=== PATIENT | male | born 1945 | race Caucasian/White ===

== ENCOUNTER 2016-07-05 16:07 | Inpatient (IN) | payer MEDICARE, OTHER ==
[~2016-07-05 16:07] MED LIST: ADULT LOW DOSE81 MG; AGGRENOX CAP1 BOTTLE; B COMPLEX PO; BABY ASPIRIN81 MG PO; BACTRIM DS1 TAB PO; CLARINEX5 MG; CLARINEX5 MG PO; COUMADIN4 MG; COZAAR100 MG PO; COZAAR50 MG PO; CYCLOBENZAPRINE5 MG PO; GLUCAGEN1 MG/KIT IJ; HUMALOG100 U/ML SQ; INDOCIN50 MG PO; INDOMETHACIN50 MG PO; LEVEMIR100 U/M SQ; LEVEMIR100 U/ML SQ; NAPROXEN500 MG PO; NORCO 5/325 TAB1 TAB PO; NORCO 5/3251 TA1 PO; NORVASC5 MG; NOVOLOG100 U/M SQ; PRADAXA150 MG PO; PRINIVIL40 MG; RESTORIL30 MG; TENORMIN100 MG; TENORMIN100 MG PO; TENORMIN50 MG; TYLENOL W/CODEI1 TAB PO; TYLENOL325 MG PO; VIT PO; VITAMIN B COMPL PO; VITAMIN B-121000 MCG PO; VITAMIN D1000 UNIT PO; VITAMIN D2400 UNIT PO; VITAMIN D32000 UNI1 PO; VYTORIN 10/80 T1 TAB PO; ZOCOR80 MG; [UNRECOGNIZED DRUG - OTHER]; [UNRECOGNIZED DRUG - REMARK]; [UNRECOGNIZED DRUG - SUPPLY] SC
[2016-07-05] MEDS ORDERED: LEVEMIR FL100 UNIT/2 SC ×2 (16:26→18:31)
[2016-07-05] MEDS ORDERED: ELIQUIS5 M1 PO (16:27)
[2016-07-05] MEDS ORDERED: CLARINEX5 M1 PO (16:27)
[2016-07-05] MEDS ORDERED: SINGULAIR10 M1 PO ×2 (16:27→18:32)
[2016-07-05] MEDS ORDERED: PROTONIX40 M2 PO ×2 (16:27→18:34)
[2016-07-05] MEDS ORDERED: LABETALOL HCL200 M1 PO (16:28)
[2016-07-05] MEDS ORDERED: LOSARTAN-HCTZ1 EAC6 PO ×2 (16:29→18:31)
[2016-07-05] MEDS ORDERED: ATORVASTATIN CA20 M1 PO (16:29)
[2016-07-05] MEDS ORDERED: TRULICITY1.5 MG/0.5 SC (16:29)
[2016-07-05 17:22] LABS: BASO % 0.4 % (0-2); EOS % 2.4 % (0-7); EOSINOPHIL ABSOLUTE COUNT 0.2 tho/cmm (0.0-0.7); HCT-HEMATOCRIT 37.2 % (36.0-53.5); HGB-HEMOGLOBIN 12.7 gm/dl (13.5-17.0); IMMATURE GRANULOCYTES ABSOLUTE 0.02 tho/cmm (0-0.03); IMMATURE GRANULOCYTES PERCENT 0.2 % (0-0.3); LYMPH % 8.4 % (20-45); LYMPH ABSOLUTE COUNT 0.8 tho/cmm (0.8-4.5); MCH (MEAN CORPUSCULAR HGB) 31.8 pg (28.0-32.0); MCHC MEAN CORPUSCULAR HGB CONC 34.1 % (32.0-36.0); MEAN PLATELET VOLUME 9.6 cmc (9.4-12.4); MONO % 9.8 % (0-12); NEUTROPHIL ABSOLUTE COUNT 7.7 tho/cmm (1.6-8.0); NEUTROPHIL-AUTOMATED 7.7 tho/cmm (1.6-8.0); NEUTROPHILS % 78.8 % (40-80); PLATELET COUNT 200 tho/cmm (150-450); RED CELL DISTRIBUTION WIDTH 14.3 % (12.4-16.4); WHITE BLOOD COUNT 9.8 tho/cmm (4.0-10.0)
[2016-07-05 17:59] LABS: ANION GAP 16 mmol/L (0-20); BLOOD UREA NITROGEN 29 mg/dl (6-24); CALCIUM 9.7 mg/dl (8.5-10.5); CARBON DIOXIDE-VENOUS 22 mmol/L (22-32); CHLORIDE 105 mmol/l (96-110); CREATININE 2.08 mg/dl (0.60-1.30); GLUCOSE 97 mg/dL (70-110); POTASSIUM 4.5 mmol/L (3.7-5.1); SODIUM 138 mmol/L (135-145); eGFR VALUE FOR BLACK 36 mL/Min
[2016-07-05] MEDS ORDERED: LIPITOR20 M1 PO (18:29)
[2016-07-05] MEDS ORDERED: TENORMIN100 M1 PO (18:29)
[2016-07-05] MEDS ORDERED: NORVASC5 M2 PO (18:29)
[2016-07-05] MEDS ORDERED: DESLORATADINE5 M1 PO (18:30)
[2016-07-05] MEDS ORDERED: NASONEX17 G1 (18:33)
[2016-07-05] MEDS ORDERED: NOVOLOG FL100 UNIT/2 (18:33)
[2016-07-05] MEDS ORDERED: VITAMIN B-12250 MC2 PO (18:34)
[2016-07-05] MEDS ORDERED: TRULICITY1.5 MG/0.5 (18:38)
[2016-07-08 05:40] LABS: ANION GAP 14 mmol/L (0-20); BLOOD UREA NITROGEN 25 mg/dl (6-24); CALCIUM 8.9 mg/dl (8.5-10.5); CARBON DIOXIDE-VENOUS 23 mmol/L (22-32); CHLORIDE 109 mmol/l (96-110); CREATININE 1.71 mg/dl (0.60-1.30); GLUCOSE 143 mg/dL (70-110); POTASSIUM 3.6 mmol/L (3.7-5.1); SODIUM 142 mmol/L (135-145); eGFR VALUE FOR BLACK 45 mL/Min
[2016-07-08] MEDS ORDERED: AMIODARONE HCL200 M1 PO (16:00)
[2016-07-08] MEDS ORDERED: LOPRESSOR50 M1 PO (16:02)
== END 2016-07-08 17:29 | DRG 287 ==
LOC: EDMED 16:07 → EMR2 19:32 → PCUB 20:20
PROVIDERS: Emergency Medicine; Internal Medicine Cardiovascular Disease; ADMIT Internal Medicine Cardiovascular Disease
PROC: 0DJ08ZZ Inspection of Upper Intestinal Tract, Via Natural or Artificial Opening Endoscopic (ICD-10-PCS; 2016-07-07)
PROC: 4A023N7 Measurement of Cardiac Sampling and Pressure, Left Heart, Percutaneous Approach (ICD-10-PCS; principal; 2016-07-08)
PROC: B216YZZ Fluoroscopy of Right and Left Heart using Other Contrast (ICD-10-PCS; 2016-07-08)
PROC: B211YZZ Fluoroscopy of Multiple Coronary Arteries using Other Contrast (ICD-10-PCS; 2016-07-08)
DX: I48.2 Chronic atrial fibrillation (principal); N18.4 Chronic kidney disease, stage 4 (severe); E11.22 Type 2 diabetes mellitus with diabetic chronic kidney disease; E11.649 Type 2 diabetes mellitus with hypoglycemia without coma; J30.9 Allergic rhinitis, unspecified; I12.9 Hypertensive chronic kidney disease with stage 1 through stage 4 chronic kidney disease, or unspecified chronic kidney disease; D64.9 Anemia, unspecified; I25.10 Atherosclerotic heart disease of native coronary artery without angina pectoris; W19.XXXA Unspecified fall, initial encounter; E78.5 Hyperlipidemia, unspecified; K21.9 Gastro-esophageal reflux disease without esophagitis; R56.9 Unspecified convulsions; F32.9 Major depressive disorder, single episode, unspecified; Z96.642 Presence of left artificial hip joint; G47.33 Obstructive sleep apnea (adult) (pediatric); Y93.89 Activity, other specified; Y92.000 Kitchen of unspecified non-institutional (private) residence as the place of occurrence of the external cause; I25.2 Old myocardial infarction; Z87.891 Personal history of nicotine dependence; Z79.4 Long term (current) use of insulin; Z85.520 Personal history of malignant carcinoid tumor of kidney; Z79.82 Long term (current) use of aspirin; Z95.5 Presence of coronary angioplasty implant and graft
CPT/HCPCS: A9500; C1894; C8929; J0282; J1644; J1650; J1815; J2250; J2785; J3010; J7030; Q9967